=== PATIENT | female | born 2000 | race Caucasian/White ===

== ENCOUNTER 2021-01-06 01:53 | Inpatient (IN) | payer SELFPAY ==
[2021-01-06] MEDS ORDERED: diphenhydrAMINE 50 MG/ML VIAL ONE (02:26)
[2021-01-06] MEDS ORDERED: Senokot S 8.6-50 MG TAB PO PRN (03:18)
[2021-01-06] MEDS ORDERED: Guaifenesin DM 100-10/5 ML UDCUP PO PRN (03:18)
[2021-01-06] MEDS ORDERED: Ondansetron PF 4 MG/2 ML Vial IVP PRN (03:18)
[2021-01-06] MEDS ORDERED: Acetaminophen 325 MG TAB PO PRN (03:18)
[2021-01-06] MEDS ORDERED: Calcium Carbonate 500 MG ChewTAB PO PRN (03:18)
[2021-01-06] MEDS ORDERED: HYDROcodone/Acetaminophen 5/325 mg Tablet PO PRN (03:18)
[2021-01-06] MEDS ORDERED: Ketorolac Tromethamine 30 MG/ML VIAL IVP PRN (03:21)
[2021-01-06] MEDS ORDERED: Potassium Chloride 20 MEQ TAB PO SCH (03:30)
[2021-01-06 03:47] LABS: CSF RBC Count - Manual 0 /cu.mm (None Seen); CSF Source CSF; CSF WBC/NonHematics Count-Man 0 /cu.mm (0-5); Clarity Clear (Clear); Tube # 1
[2021-01-06 03:52] LABS: CSF, Glucose 68 mg/dl (40-70); CSF, Protein 32 mg/dL (15-40)
[2021-01-06 04:06] LABS: CSF Source CSF; Clarity Clear (Clear); Tube # 4
[2021-01-06 04:07] LABS: CSF RBC Count - Manual 0 /cu.mm (None Seen); CSF WBC/NonHematics Count-Man 0 /cu.mm (0-5)
[2021-01-06 04:18] LABS: Color Of CSF Supernatant COLORLESS (Colorless); Tube # 1; Unspun CSF Color COLORLESS (Colorless)
[2021-01-06 04:26] VITALS: BMI 19.8
[2021-01-06] MEDS: Lactated Ringer's 1,000 ML IV SCH ×2 (04:30→09:33)
[2021-01-06 05:06] LABS: #Monocytes 0.3 10x3/uL (0.0-1.1); #Neutrophils 14.9 10x3/uL (1.5-8.4); %Basophils 0.1 % (0.0-2.0); %Lymphocytes 3.7 % (18.0-47.0); %Neutrophils 93.7 % (40.0-75.0); Hemoglobin 11.3 g/dL (12.0-15.5); Mean Corpuscular HGB CONC 32.2 g/dL (32.0-36.0); Mean Corpuscular Hemoglobin 30.5 pg (27.0-33.0); Mean Corpuscular Volume 94.6 fl (81.6-98.3); Mean Platelet Volume 11.5 fl (7.4-10.4); Platelet Count 182 10x3/uL (150-450); RBC Distribution Width 12.1 % (11.5-14.5); Red Blood Cell (RBC) Count 3.71 10x6/uL (3.90-5.03); White Blood Cell (WBC) Count 15.9 10x3/uL (3.5-10.5)
[2021-01-06 05:24] LABS: ALT (SGPT) 11 U/L (8-55); AST (SGOT) 14 U/L (5-34); Albumin 3.9 g/dL (3.5-5.0); Alkaline Phosphatase 73 U/L (40-110); Anion Gap 10 mmol/L (10-20); BUN (Urea Nitrogen) 7 mg/dL (7.0-18.7); Bilirubin, Total 0.6 mg/dL (0.2-1.2); Calc. Creatinine Clearance 113 mL/min (70-130); Calcium 8.9 mg/dL (7.8-10.44); Carbon Dioxide 23 mmol/L (22-29); Chloride 109 mmol/L (98-107); Globulin 2.7 g/dL (2.4-3.5); Glucose 121 mg/dL (70-105); Potassium 3.9 mmol/L (3.5-5.1); Protein, Total 6.6 g/dL (6.0-8.3); Sodium 138 mmol/L (136-145)
[2021-01-06 05:25] LABS: CRP (Inflammatory) 5.59 mg/dL (= or < 0.5); Magnesium 1.9 mg/dL (1.6-2.6)
[2021-01-06] MEDS ORDERED: Vancomycin HCl 750 MG in Sodium Chloride 0.9% 250 ML 250 ML IVPB SCH ×2 (06:00→18:00)
[2021-01-06] MEDS ORDERED: Dexamethasone 10 MG/ML VIAL SLOW IVP SCH (06:00)
[2021-01-06] MEDS ORDERED: Eucerin (Mineral Oil/Petrolatum,White) 30 gm Jar TOP PRN (07:21)
[2021-01-06] MEDS ORDERED: Zolpidem Tartrate 5 MG TAB PO PRN (07:21)
[2021-01-06] MEDS ORDERED: Bisacodyl 5 MG TAB PO PRN (07:21)
[2021-01-06] MEDS ORDERED: Cepastat Lozenges 1 LOZ PO PRN (07:21)
[2021-01-06] MEDS ORDERED: GUAIFENESIN SF SOLN 200 MG/10 ML UDCUP PO PRN (07:21)
[2021-01-06] MEDS ORDERED: Sodium Chloride 0.65% Nasal 44 ML BOT EA NARE PRN (07:21)
[2021-01-06] MEDS ORDERED: Benzonatate 100 MG CAP PO PRN (07:21)
[2021-01-06] MEDS ORDERED: diphenhydrAMINE 25 MG CAP PO PRN (07:21)
[2021-01-06] MEDS ORDERED: Loperamide HCl 2 MG CAP PO PRN (07:21)
[2021-01-06] MEDS ORDERED: Labetalol HCl 100 MG/20 ML VIAL SLOW IVP PRN (07:21)
[2021-01-06 08:54] LABS: Pregnancy Test - Urine (BHCG) Negative (Negative); Pregu Control Background? CLEAR/WHITE (CLR/WHITE); Pregu Control Bar Appear? YES (CONTROL BAR); Specific Gravity 1.015 (1.002-1.036)
[2021-01-06] MEDS ORDERED: Famotidine/PF 20 mg/2ml Vial SLOW IVP SCH (09:00)
[2021-01-06] MEDS ORDERED: cefTRIAXone\\ROCEPHIN 2 GM in Sodium Chloride 0.9% 100 ML IVPB SCH (09:00)
[2021-01-06] MEDS ORDERED: cefTRIAXone\\ROCEPHIN 1 GM in Sodium Chloride 0.9% 100 ML IVPB SCH (11:00)
[2021-01-06] MEDS ORDERED: Dexamethasone 4 mg/ml Vial SLOW IVP SCH (11:45)
[2021-01-06] MEDS ORDERED: Vancomycin 1 GM in Premix Bag 1 BAG IVPB SCH (13:00)
[2021-01-06 16:12] VITALS: BP 122/68; TEMP 98.6
[2021-01-06 17:42] LABS: SARS-CoV-2 PCR by NAA Not Detected (NotDetected)
[2021-01-06] MEDS ORDERED: Cefepime 2 GM in Sodium Chloride 0.9% 100 ML IVPB SCH (21:00)
[2021-01-07] MEDS ORDERED: Dexamethasone 4 mg/ml Vial SLOW IVP SCH (21:00)
[2021-01-09 08:10] LABS: Ref Lab Test Ordered NMO; Reference Lab Name LABCORP
== END 2021-01-06 19:18 | disposition home or self-care (01) | DRG 872 ==
LOC: CSHERS 01:53 → CSHTELE 04:23
PROVIDERS: ADMIT Student in an Organized Health Care Education/Training Program; ATTEND Internal Medicine
DX: A41.9 Sepsis, unspecified organism (principal); R51.9 Headache, unspecified; Z20.822 Contact with and (suspected) exposure to COVID-19; E87.6 Hypokalemia; R19.7 Diarrhea, unspecified; D64.9 Anemia, unspecified
CPT/HCPCS: 36415; 62270; 70553; 80053; 81025; 82945; 83735; 84145; 84157; 85025; 86140; 87070; 87205; 87529; 87635; 89051; 96374; J0133; J0696; J1100; J1200; J3370; J3490; J7050; J7120; S0028; U0003; U0005

== ENCOUNTER 2022-02-21 09:54 | Emergency (ER) | payer SELFPAY ==
[2022-02-21] MEDS ORDERED: Magnevist 469MG/ML 20 ML VIAL ONE (10:20)
[2022-02-21 11:52] LABS: Pregnancy Test - Urine (BHCG) Negative (Negative); Pregu Control Background? CLEAR/WHITE (CLR/WHITE); Pregu Control Bar Appear? YES (CONTROL BAR)
== END 2022-02-21 15:21 | disposition home or self-care (01) ==
LOC: CSHERS 09:54
DX: G62.9 Polyneuropathy, unspecified (principal)
CPT/HCPCS: 72156; 72157; 72158; 81025

== ENCOUNTER 2023-07-23 16:55 | Emergency (ER) | payer BC, SELFPAY ==
[2023-07-23] MEDS ORDERED: Ondansetron PF 4 MG/2 ML Vial ONE (18:36)
[2023-07-23 19:03] LABS: SARS-CoV-2 NAA Rapid Test DETECTED (NotDetected)
== END 2023-07-23 19:21 | disposition home or self-care (01) ==
LOC: CSHERS 16:55
DX: U07.1 COVID-19 (principal); J06.9 Acute upper respiratory infection, unspecified
CPT/HCPCS: 71045; 96361; 96374; J2405